=== PATIENT | male | born 1950 | race Caucasian/White ===

== ENCOUNTER 2023-02-02 08:39 | Outpatient (CLI) | payer MEDICARE | END 2023-02-02 08:40 | disposition home or self-care (01) | LOC: SCSMRI 08:39 | PROVIDERS: ATTEND Family Medicine | DX: M54.50 Low back pain, unspecified (principal); M47.816 Spondylosis without myelopathy or radiculopathy, lumbar region; M47.817 Spondylosis without myelopathy or radiculopathy, lumbosacral region | CPT/HCPCS: 72148 ==